=== PATIENT | female | born 1985 | race Caucasian/White ===

== ENCOUNTER 2024-09-15 21:50 | Observation (INO) | payer OTHER, SELFPAY ==
[2024-09-15 18:14] VITALS: BP 193/121
[2024-09-15 18:28] VITALS: BMI 43.9
[2024-09-15 18:31] VITALS: BP 156/95
[2024-09-15 18:34] LABS: % Basophils 0.9 % (0-2); % Eosinophils 1.1 % (0-6); % Immature Granulocytes 0.4 % (0-0.5); % Lymphocytes 30.6 % (20.5-51.1); % Monocytes 6.5 % (1.7-9.3); % Neutrophils 60.5 % (42.2-75.2); Absolute Basophils 0.1 10^3/uL (0-0.2); Absolute Eosinophils 0.1 10^3/uL (0-0.7); Absolute Immature Granulocytes 0.1 10^3/uL (0-0.05); Absolute Lymphocytes 3.9 10^3/uL (1.2-3.4); Absolute Monocytes 0.8 10^3/uL (0.1-0.6); Absolute Neutrophils 7.8 10^3/uL (1.4-6.5); Hematocrit 43.5 % (37.0-47.0); Hemoglobin 14.6 g/dL (12.0-16.0); Mean Corp Hgb Conc. 33.6 g/dL (33.0-37.0); Mean Corpuscular Hgb 27.9 pg (27.0-31.0); Mean Platelet Volume 9.9 fL (7.4-10.4); Nucleated Red Blood Cells % 0 %; Platelet Count 359 10^3/uL (130-400); Red Blood Cell Count 5.24 10^6/uL (4.20-5.40); Red Cell Dist. Width 13.1 % (11.5-14.5); White Blood Cell Count 12.9 10^3/uL (4.8-10.8)
[2024-09-15 18:42] LABS: INR 0.94; PT 12.9 Sec (11.4-14.6)
--- NOTE | 2024-09-15 18:42 | EDRN ---
neurology currently at the pts bedside
--- NOTE | 2024-09-15 18:42 | ED.GENMED ---
History of Present Illness
General
Chief Complaint: Numbness
Source: patient
Exam Limitations: none
Time Seen by Provider: 09/15/24 18:27
Nursing documentation reviewed up to this point in time: agreed with
History of Present Illness
History of Present Illness:
39 yo female presents emergency department due to left facial numbness, left eye blurriness, and difficulty speaking.
If applicable-neuro sx onset
Onset of symptoms known: Yes
Date of onset of symptoms: 09/15/24
Time of onset of symptoms: 12:00
Past History
Past History
ED Past Medical History: NIDDM
ED Past Surgical History: Gynecological (Hysterectomy, D&Cs), Orthopedic (Right knee) and Tonsilectomy (Adenoids)
Social History
Tobacco: Non-smoker
Alcohol: None
Drug: None
Living: with family
Review of Systems
Review of Systems
Allergies reviewed?: Yes
All Other Systems: Not applicable
Constitutional: Reports no symptoms
EENT: Reports no symptoms
Respiratory: Reports no symptoms
Cardiac: Reports no symptoms
ABD/GI: Reports no symptoms
: Reports no symptoms
Musculoskeletal: Reports no symptoms
Skin: Reports no symptoms
Neurological: Reports headache and numbness
Endocrine: Reports no symptoms
Hematologic/Lymphatic: Reports no symptoms
Psychiatric: Reports no symptoms
Phy Exam
Physical Exam
Physical Exam:
Physical Exam
General: no apparent distress, not acutely ill
Neck: supple. no meningeal signs. normal posterior pharynx
Heart: s1/s2 regular rate and rhythm, no murmur. equal radial
pulses.
HEENT: Pupils equal round reactive to light, EOMI
Lungs: no acute respiratory distress. clear bilaterally
Abdomen: normal bowel sounds. not tender. no CVAT
Neuro: alert and oriented. no focal neurological deficits cranial nerves II through XII intact, except mild expressive aphasia
Skin: no rash
Psychiatric: well kept. interactive and cooperative
Extremities: no edema. no calf tenderness. negative homans. good distal pulses
Scores
NIH Stroke Score
Level of Consciousness: 0 - Alert
LOC Questions: 0-Answers both correctly
LOC Commands: 0-Performs both correctly
Best Horizontal Gaze: 0-Normal
Visual Askew: 0=Normal, no visual loss
Facial Palsy: 0=Normal, symmetrical
Motor - Right Arm: 0=No drift 10 seconds
Motor - Left Arm: 0=No drift 10 seconds
Motor - Right Le-No drift 5 seconds
Motor - Left Le-No drift 5 seconds
Limb Ataxia: 0-Absent
Sensation: 0-Normal
Best Language: 1-Mild aphasia
Dysarthria: 0-Normal
Extinction and Inattention: 0-No abnormality
Total Score:: 1
Course
Orders/Labs/Results
Orders:
Orders
09/15/24 18:25
Electrocardiogram (*1) Urgent
Reason for Study: Vertigo / Dizzy
EKG- Treatment ONCE
09/15/24 18:27
C-Reactive Protein Urgent
Comment: ADD ON
Complete Blood Count/With Diff Urgent
Comprehensive Metabolic Panel Urgent
Erythrocyte Sed Rate Urgent
Comment: ADD ON
Magnesium Urgent
PTT Urgent
Prothrombin Time Urgent
TSH Reflex To Free T4 Urgent
Comment: ADD ON
Troponin I Urgent
09/15/24 18:31
CT Head & Neck Angio W/wo IV Urgent
Comment:
Reason For Exam: expressive aphasia, blurry vision
09/15/24 21:27
Admit/Transfer Patient As Directed
Co-Sign Provider:
Level of Care: Observation services
Assign to:: Telemetry
Physician / Group: Curtis
Diagnosis: Left Facial Numbness; Speech Abnormality
Reason for Telemetry: CVA/TIA
Date to Stop Telemetry: 09/18/24
Time to Stop Telemetry: 11:00
PRN Pain Medication Management As Directed
May give lesser potent ordered pain med per pt: Yes
preference::
Protocol:: Medication orders for pain may be administered in a
manner that supports deferring to patient preference
when the pt is:
- Requesting an ordered lesser potent pain medication.
Least to most potent pain medications are defined
as: acetaminophen < NSAID < tramadol < opioids
(morphine, oxycodone, hydromorphone).
- Requesting a lesser dose of the same medication IF
ORDERED.
- Requesting a less intrusive route of administration
if both routes are prescribed by the provider (PO <
IV).
09/15/24 21:29
Code Status As Directed
Resuscitation Status: Full Code
09/15/24 21:31
Add On- LAB Urgent
Tests Added?: magnesium, TSH w/Reflex, ESR, CRP
09/15/24 21:39
Urine Drug Abuse Screen Routine
Date Specimen was Collected: 09/15/24
Time Specimen was Collected: 21:37
09/15/24 23:14
Acetaminophen [Tylenol/Feverall] 650 mg RECTAL Q4HPRN PRN
Acetaminophen [Tylenol] 1,000 mg PO Q6HPRN PRN
Acetaminophen [Tylenol] 650 mg PO Q4HPRN PRN
Aspirin Low Dose EC [Aspir Low (Enteric Coated)] 81 mg PO HS
Lisinopril [Zestril] 2.5 mg PO HS
09/15/24 23:14
Case Management Consult ONCE
Case Management Consult: Discharge Planning
Comment: stroke/tia
DIETARY IP CONSULT Routine
Reason for Consult: stroke/TIA
NEUROLOGY CONSULT Urgent
Consulting Provider: Georgina Dale
Was physician already notified: Yes
Show Dog Trainer Urgent
Activity As Directed
Activity Level: Out of Bed-Early Mobility
NIH Stroke Scale As Directed
Directions: Per protocol
Comment: every shift and with any change in condition or mental status
Neurological Checks As Directed
Frequency: q4h
Additional Instructions:: q4h x 24h upon admission to the floor, then qshift & with any change in condition
and mental status
Obtain Records As Directed
Dates of Information to be Released: January 2024
Type of Information Requested: Entire Record
Obtain Records from: [facility]
Obtain Records As Directed
Dates of Information to be Released: September 2023
Type of Information Requested: Entire Record
Obtain Records from: [place]
Patient Education As Directed
Type: Stroke education packet
Comment: provide to patient and family
Pneumatic Compression Sleeves As Directed
Type: Knee high
Swallow Screening CVA/TIA ONLY As Directed
Comment: NPO until swallowing screening completed
If patient FAILS swallow screening:: NPO, Speech Therapy consult, Aspiration Precautions
If patient PASSES swallow screening, diet:: 2000 cathy/ 17 CHO Diabetic
Vital Signs As Directed
Frequency: Per unit guidelines
Ot Eval And Treat Routine
Pt Eval And Treat Routine
Activity Level: Out of Bed-Early Mobility
Speech Therapy Eval & Treat Routine
DX Deep Vein Thrombosis Video Routine
09/16/24 05:34
Cardiovascular Evaluation IN AM
09/16/24 08:00
Acetazolamide [Diamox] 500 mg PO BID
Atorvastatin [Lipitor] 10 mg PO DAILY
09/18/24 11:00
DC Protocol for Telemetry ONCE
Abnormal Lab Results
09/15/24
18:27
WBC 12.9 H 10^3/uL
(4.8-10.8)
Abs Immat Gran (auto) 0.1 H 10^3/uL
(0-0.05)
Absolute Neuts (auto) 7.8 H 10^3/uL
(1.4-6.5)
Absolute Lymphs (auto) 3.9 H 10^3/uL
(1.2-3.4)
Absolute Monos (auto) 0.8 H 10^3/uL
(0.1-0.6)
Calcium 10.4 H mg/dl
(8.4-10.2)
Total Protein 8.5 H g/dl
(6.3-8.2)
Albumin 5.2 H g/dl
(3.5-5.0)
09/15/24 18:27
09/15/24 18:27
Vital Signs
Initial and Last Documented VS:
Initial Vital Signs
Temp Pulse Resp BP Pulse Ox
98.0 F 89 18 193/121 100
09/15/24 18:14 09/15/24 18:14 09/15/24 18:14 09/15/24 18:14 09/15/24 18:14
Last Documented Vital Signs
Temp Pulse Resp BP Pulse Ox
98.1 F 75 16 107/67 96
09/16/24 07:20 09/16/24 07:20 09/16/24 07:20 09/16/24 07:20 09/16/24 07:20
MDM/Problems Addressed
Differential Diagnosis Includes:
CVA, intracranial hemorrhage
MDM/Problems Addressed:
39-year-old female with expressive aphasia, bilateral numbness. Concern for possible CVA. CTA pending. Patient not in window for TNK.
Chronic conditions affecting care: Neurological disorder (cva/tia)
*Radiology
Radiology exam reviewed: radiology read reviewed (cta head and neck nad)
*Pulse Oximetry
Patient hypoxic: no
*EKG
Interpreted by ED Provider?: Yes
EKG Intrepretation Date: 09/15/24
EKG Intrepretation Time: 19:15
Interpretation: normal
Comparison EKG: no comparison EKG present
Heart Rate: 86
Rate: normal
Rhythm: sinus
[place]: normal axis
Interval: normal interval
QRS Pattern: normal QRS
Ischemia: no ischemia
*Transplant Surgeon Interpretation
Rate: normal
Interpretation: normal
Heart Rate: 84
Rhythm: sinus
*Critical Care Note
Total Time (30-74mins, 75-104mins- exclusive of procedures): Not Applicable
Data Reviewed
Further Testing Considered But Not Given:
TNK not indicated
Patient Management
Social determinants of health affecting care: Living situation and Strong social support
Discussion with other providers: Hospitalist and Service Technician Copier (Neurology, Dr. Dale)
Escalation/DeEscalation of care consider admission/obs:
admit indicated
ED Attending Note
-
Portions of this chart may have been created with voice recognition software.� Occasional wrong word or��sound alike� substitutions may have occurred due to the inherent limitations of voice recognition software.
Discharge Plan
Departure
Patient Disposition: Admit
Date of Disposition: 09/15/24
Time of Disposition: 20:19
Admit to: Telemetry
Presentation/result/management discussed w/ accepting MD/DO: Hospitalist
Patient with high blood pressure during this ER visit?: Yes
Condition: Good
Discharge Problem:
Transient ischemic attack (TIA)
Interventions
Interventions:
*Risk Screen - Suicide Last Done: 09/15/24 18:14
*General Assessment Last Done: 09/15/24 18:14
*Neglect/Abuse Screening Last Done: 09/15/24 18:31
*ED- Fall Risk Assessment Last Done: 09/15/24 18:31
*ED COVID-19 Vaccine History Last Done: 09/15/24 18:31
ED- Neurological Assessment Last Done: 09/15/24 18:31
[2024-09-15 18:43] LABS: APTT 28.1 Sec (23.4-35.0)
[2024-09-15 18:49] LABS: ALT (SGPT) 23 U/L (0-35); AST (SGOT) 26 U/L (14-36); Albumin 5.2 g/dl (3.5-5.0); Alkaline Phosphatase 66 U/L (38-126); Blood Urea Nitrogen 11 mg/dl (7-17); Calcium 10.4 mg/dl (8.4-10.2); Carbon Dioxide 27 mmol/L (22-30); Chloride 101 mmol/L (98-107); Estimated Creatinine Clearance 109 ml/min; Glucose 92 mg/dl (70-99); Magnesium 1.9 mg/dl (1.6-2.3); Potassium 4.1 mmol/L (3.5-5.1); Sodium 139 mmol/L (135-145); Total Bilirubin 0.6 mg/dl (0.2-1.3); Total Protein 8.5 g/dl (6.3-8.2); eGFR > 60.00
[2024-09-15 18:59] LABS: Troponin I < 0.012 ng/ml
[2024-09-15 19:00] VITALS: BP 138/90
--- NOTE | 2024-09-15 20:51 | CON.NEURO ---
Consultation
Order
Date of Consultation: 09/15/24
Requesting Provider: Lokesh Valverde DO
Reason for Consult: stroke
Neurology Consultation Note.
HPI: This is a 39-year-old woman the patient presents Right-handed 09/15/2024 with with left-sided facial numbness, headache, and visual disturbances. According to the patient she was driving when she developed an acute numbness numbness started
around 5:15 PM, affecting the entire left side of her face, extending across her forehead and down into her left neck neck. She reports a stabbing pain in the left temporal area that started around 6 PM that has been intermittent. Ms. Gutierrez(aka
Ruddy)also complains of blurry vision in her left eye, which began while she was driving. She initially thought it was an issue with her contact lens but the blurriness persisted after switching to glasses.
The patient has been experiencing expressive language difficulties since approximately 12 PM, mixing up the first letters of words. She notes that this symptom is not new and has occurred in the past in association with her idiopathic intracranial
hypertension. The patient reports that during episodes, her left pupil sometimes 'fails to dilate'.
Of note, the patient has a history of cerebral venous sinus thrombosis diagnosed in August of the previous year, for which she was initially treated with heparin and is currently on aspirin. She denies experiencing migraines but reports occasional
tinnitus, more pronounced in the right ear, and episodes of vertigo. There is a history of questionable nasal CSF leak
ER VS: 193/121, 89, afebrile
EKG:NSR, QTc Int : 414 ms
PDMP:Pregabalin 100 Mg 20 capsules filled in on 06/28/2024, Oxycodone Hcl (Ir) 5 Mg 7 tabs filled in on 06/25/2024
Labs: WBCs�12.9, normal sodium, creatinine, calcium�10.4, protein�5.2
CT head wo contrast-no acute abnormalities, occlusion, aneurysm or dissection
PMH: IIH, DLP, DM, history of cerebral venous thrombosis, BMI 43.9, STEVEN(intolerant to CPAP)
PSH: MORENA(05/2024), multiple D&Cs for miscarriages, right knee arthroscopy
SH: Works at [employer]; going through divorce, nonsmoker; no history of excessive alcohol use
FH: Not contributory
All:PNC
ROS: Constitutional: Negative. Negative for chills, fever and unexpected weight change.
HENT: Negative for ear pain, hearing loss, tinnitus and trouble swallowing.
Eyes: Negative. Negative for photophobia, pain and visual disturbance.
Respiratory: Negative for cough, choking and shortness of breath.
Cardiovascular: Negative for chest pain, palpitations and leg swelling.
Gastrointestinal: Negative for abdominal pain and vomiting.
Endocrine: Negative. Negative for cold intolerance.
Genitourinary: Negative for dysuria, flank pain and urgency.
Musculoskeletal: Negative for back pain, gait problem, neck pain and neck stiffness.
Skin: Negative for rash.
Allergic/Immunologic: Negative. Negative for immunocompromised state.
Neurological: Negative for dizziness, tremors, seizures, speech difficulty, numbness and headaches.
Psychiatric/Behavioral: Negative for behavioral problems, confusion and hallucinations.
General: Well developed. In no acute distress.
Cardio: Regular rate and rhythm without murmur. Extremities are without cyanosis or edema.
Neuro:
Mental Status: Alert, oriented to person, place, and date. Normal attention and recall. Good fund of knowledge. Follows complex requests across the midline. Comprehension, naming, and repetition intact. Immediate and delayed recall 3/3.
Cranial Nerves: Pupils are equally round and reactive to light. EOMs full. Visual buchanan full to confrontation. No ptosis. No nystagmus. V1-V3 intact to light touch and pinprick bilaterally, symmetric. Face symmetric. Normal hearing AU. The
palate elevated well. SCMs and traps 5/5. Tongue midline. No dysarthria.
Motor: Normal bulk and tone. No pronator or arm drift. Strength 5/5 throughout. No clonus.
Reflexes: 2+ throughout the upper extremities and knees. 2/2 in AJs. Plantar responses flexor bilaterally.
Sensory: Normal pinprick, vibration and JPS.
Coordination: No dysmetria or tremor.
Gait: deferred
Assessment and Plan:
I. Hypertensive emergency
II. IIA
III. History of cerebral sinus thrombosis
-Continue Telemetry monitoring
-Aspiration precautions
-Cautious lowering of BP by approximately 15 % during the first 24 hours is SBP >220 mmHg or diastolic blood pressure >120 mmHg
-Brain MRI without marichuy
-Continue ASA 81 mg QD
-Continue Diamox 500 mg twice daily
-Please check TFTs, magnesium, urine tox, ESR, CRP
-PT.
-Please obtain medical records from [facility]
-DVT prophylaxis.
I personally reviewed all radiology and labs along with past medical records pertinent to current medical problems. Total time spent in patient care is 60 minutes.
Thank you for allowing us to participate in the care of this patient. We will continue to follow. Please do not hesitate to contact us with any questions or concerns.
Subjective/Objective
Subjective Data
Date of Service: September 15, 2024
Objective Data
Vital Signs
Temp Pulse Resp BP Pulse Ox
36.6 C 85 18 156/95 98
09/15/24 19:12 09/15/24 18:31 09/15/24 18:31 09/15/24 18:31 09/15/24 18:31
Lab Results
09/15/24 18:27
09/15/24 18:27
PT 12.9 Sec (11.4-14.6) 09/15/24 18:27
INR 0.94 09/15/24 18:27
APTT 28.1 Sec (23.4-35.0) 09/15/24 18:27
Sodium 139 mmol/L (135-145) 09/15/24 18:27
Potassium 4.1 mmol/L (3.5-5.1) 09/15/24 18:27
BUN 11 mg/dl (7-17) 09/15/24 18:27
Glucose 92 mg/dl (70-99) 09/15/24 18:27
Calcium 10.4 mg/dl (8.4-10.2) H 09/15/24 18:
Patient Allergies
latex [Latex] Allergy (Verified 09/15/24 18:16)
Hives
peanut Allergy (Verified 09/15/24 18:16)
Unknown
Penicillins Allergy (Verified 09/15/24 18:16)
Hives
Medications
-
Home Medications
�Medication �Instructions �Recorded
acetaminophen 500 mg tablet 1,000 mg PO Q6HPRN PRN mild pain 09/15/24
(Tylenol Extra Strength)
acetazolamide 250 mg tablet 500 mg PO BID 09/15/24
aspirin 81 mg tablet,delayed 81 mg PO HS 09/15/24
release
atorvastatin 10 mg tablet 10 mg PO DAILY 09/15/24
lisinopril 2.5 mg tablet 2.5 mg PO HS 09/15/24
tirzepatide 7.5 mg/0.5 mL 7.5 mg SC WE 09/15/24
subcutaneous pen injector
(Wanungregorioro)
Vital Signs and Labs
-
Vital Signs and Labs:
Vital Signs
Temp Pulse Resp BP Pulse Ox
36.6 C 85 18 156/95 98
09/15/24 19:12 09/15/24 18:31 09/15/24 18:31 09/15/24 18:31 09/15/24 18:31
Lab Results
09/15/24 18:27
09/15/24 18:27
PT 12.9 Sec (11.4-14.6) 09/15/24 18:
INR 0.94 09/15/24 18:
APTT 28.1 Sec (23.4-35.0) 09/15/24 18:
Sodium 139 mmol/L (135-145) 09/15/24 18:
Potassium 4.1 mmol/L (3.5-5.1) 09/15/24 18:
BUN 11 mg/dl (7-17) 09/15/24 18:
Glucose 92 mg/dl (70-99) 09/15/24 18:
Calcium 10.4 mg/dl (8.4-10.2) H 09/15/24 18:
Home Medications
-
Home Medications
acetaminophen 500 mg tablet (Tylenol Extra Strength) 1,000 mg PO Q6HPRN PRN mild pain 09/15/24
acetazolamide 250 mg tablet 500 mg PO BID 09/15/24
aspirin 81 mg tablet,delayed release 81 mg PO HS 09/15/24
atorvastatin 10 mg tablet 10 mg PO DAILY 09/15/24
lisinopril 2.5 mg tablet 2.5 mg PO HS 09/15/24
tirzepatide 7.5 mg/0.5 mL subcutaneous pen injector (Mounjaro) 7.5 mg SC WE 09/15/24
[2024-09-15 21:00] VITALS: BP 139/104
--- NOTE | 2024-09-15 21:22 | HPS.HSE ---
Addendum entered and electronically signed by Yoshi Acevedo DO 09/15/24 22:28:
Patient seen and examined independently. Agree with findings and plan as set forth by Magalis Alba PA-C.
Patient is a 39y F with PMH significant for prior cavernous sinus thrombosis, IIH and DM-II who presents to ED complaining of speech difficulty, blurry vision and L facial numbness. Patient has had similar episodes in the past. She reports
difficulty with speech throughout the day today. She was stumbling on her words and 'switching letters' - Bs for Vs, etc - during work. After work she noted blurry vision in the L eye in particular. She removed her contacts and changed to glasses
but the vision change persisted. Patient then developed numbness and tingling across the forehead and into the L face and neck.
Ass:
Speech Abnormality, Blurry Vision, Facial Numbness
Idiopathic Intracranial Hypertension
DM-II
h/o Cavernous Sinus Thrombosis
Plan:
Observe overnight for further evaluation and treatment.
Initial markedly elevated BP significantly improved without intervention.
Continue usual home meds including ASA, lisinopril and Diamox.
Appreciate Neurology evaluation.
MRI in AM.
? Atypical migraine, etc given recurrent episodes.
Original Note:
Family Physician
-
Family Physician: Princess Brandt
Chief Complaint
-
Neurologic Symptoms
History of Present Illness
Patient is a 39 y/o female past medical history of cerebral venous sinus thrombosis, idiopathetic intracranial hypertension, diabetes mellitus and hyperlipidemia who presents with multiple neurologic symptoms. Patient report some difficulty with
her speech starting this afternoon. While driving home around 4PM she started to develop blurry vision with left facial numbness. She notes her speech seems thick, but she is no longer mixing up words.
Medical History
Past Medical History
Past Medical History: Reports Other
Additional Past Medical History:
Cerebral Venous Sinus Thrombosis
Idiopathetic Intracranial Hypertension
Diabetes Mellitus, Type II
Hyperlipidemia
Past Surgical History: Reports Other
Additional Past Surgical History:
Hysterectomy
Right Knee Surgery
T&A
Social History
Tobacco: Non-smoker
Alcohol: Other (Reports very rare alcohol)
Family History
Family History: Not pertinent
Allergies / Home Medications
Allergies reflects when Allergies were last updated in [employer].
Home Medications with original date entered in [employer]
Allergy/Medication List:
Allergies
Allergy/AdvReac Type Severity Reaction Status Date / Time
latex [Latex] Allergy Hives Verified 09/15/24 18:16
peanut Allergy Unknown Verified 09/15/24 18:16
Penicillins Allergy Hives Verified 09/15/24 18:16
Home Medications
acetaminophen 500 mg tablet (Tylenol Extra Strength) 1,000 mg PO Q6HPRN PRN mild pain 09/15/24
acetazolamide 250 mg tablet 500 mg PO BID 09/15/24
aspirin 81 mg tablet,delayed release 81 mg PO HS 09/15/24
atorvastatin 10 mg tablet 10 mg PO DAILY 09/15/24
lisinopril 2.5 mg tablet 2.5 mg PO HS 09/15/24
tirzepatide 7.5 mg/0.5 mL subcutaneous pen injector (Mounjaro) 7.5 mg SC WE 09/15/24
Review of Systems
-
A 12 point ROS was completed and negative except as noted: Yes
Constitutional: Denies Fever
Respiratory: Denies Cough or Trouble Breathing
Cardiac: Denies Chest Pain or Palpitations
Abdomen/GI: Denies Abdominal Pain, Nausea or Vomiting
Neurological: Reports See HPI
Physical Exam
Vital Signs
Vital Signs
Temp Pulse Resp BP Pulse Ox
97.9 F 85 18 156/95 98
09/15/24 19:12 09/15/24 18:31 09/15/24 18:31 09/15/24 18:31 09/15/24 18:31
Physical Exam
General: Comfortable and Conversant
HEENT: Anicteric and Moist mucous membranes
Respiratory: Clear and Non Labored Respirations
Cardiac: S1/S2 and Regular Rhythm
GI: Soft and Non Tender
Rectal: Deferred by Provider
Musculoskeletal: No Clubbing, No Cyanosis and No Edema
Skin: Warm and Dry
Neuro: Awake, Alert, Oriented and Other (Noted sensory changes left face; Slight tongue deviation to the right)
Psych: Calm
Laboratory Results
-
09/15/24 18:
09/15/24 18:
Laboratory Results
PT 12.9 Sec (11.4-14.6) 09/15/24 18:
INR 0.94 09/15/24 18:
APTT 28.1 Sec (23.4-35.0) 09/15/24 18:
Total Bilirubin 0.6 mg/dl (0.2-1.3) 09/15/24 18:
AST 26 U/L (14-36) 09/15/24 18:
ALT 23 U/L (0-35) 09/15/24 18:
Alkaline Phosphatase 66 U/L (38-126) 09/15/24 18:
Troponin I < 0.012 ng/ml 09/15/24 18:
Data Reviewed
-
Lab Data: Labs Reviewed by me
Old Records: Requested
Impression/Plan
-
Speech Abnormality / Left Facial Numbness
-Appreciate Neurology consult
-Continue aspirin
-Check Brain MRI
-Monitor Neurocheck
Hx Cerebral Venous Sinus Thrombosis
-Continue aspirin
-Attempt to obtain records from [facility]
Idiopathetic Intracranial Hypertension
-Continue Diamox
Diabetes Mellitus, Type II
-Check HgbA1c
-Patient maintained on Mounjaro as outpatient
-Patient report lisinopril is for kidney protection with diabetes, not hypertension - Continue lisinopril
Hyperlipidemia
-Continue atorvastatin
DVT proph: SCDs
Code Status: Full Code
[2024-09-15 21:52] LABS: Erythrocyte Sed Rate 3 mm/hour (0-20)
[2024-09-15 22:05] LABS: Amphetamines Negative (Negative); Barbiturates Negative (Negative); Benzodiazepines Negative (Negative); Buprenorphine Negative (Negative); Cocaine Negative (Negative); Marijuana Negative (Negative); Methadone Negative (Negative); Methamphetamines Negative (Negative); Opiates Negative (Negative); Phencyclidine Negative (Negative); Tricyclic Antidepressants Negative (Negative)
[2024-09-15 22:56] LABS: C-Reactive Protein < 5.00 mg/L (0.0-10.00)
[2024-09-15 23:26] LABS: TSH Reflex To Free T4 1.59 uIU/ml (0.47-4.68)
[2024-09-16] VITALS (12 sets, daily range): BP systolic 95–128; BP diastolic 54–90; PULSE 76–93; O2SAT 99–100
[2024-09-16 00:02] LABS: Glucose - Point of Care 84 mg/dl (70-99)
[2024-09-16] MEDS: ZESTRIL 2.5 MG PO (00:02)
[2024-09-16] MEDS: ASPIR LOW (ENTERIC COATED) 81 MG PO (00:03)
[2024-09-16 06:14] LABS: Hematocrit 36.3 % (37.0-47.0); Hemoglobin 12.5 g/dL (12.0-16.0); Mean Corp Hgb Conc. 34.4 g/dL (33.0-37.0); Mean Corpuscular Hgb 28.7 pg (27.0-31.0); Mean Corpuscular Volume 83.3 fL (81.0-99.0); Mean Platelet Volume 10.1 fL (7.4-10.4); Platelet Count 278 10^3/uL (130-400); Red Blood Cell Count 4.36 10^6/uL (4.20-5.40); Red Cell Dist. Width 13.1 % (11.5-14.5); White Blood Cell Count 10.1 10^3/uL (4.8-10.8)
[2024-09-16 06:16] LABS: Albumin 3.8 g/dl (3.5-5.0); Blood Urea Nitrogen 8 mg/dl (7-17); Calcium 8.5 mg/dl (8.4-10.2); Carbon Dioxide 21 mmol/L (22-30); Chloride 112 mmol/L (98-107); Estimated Creatinine Clearance 124 ml/min; Glucose 79 mg/dl (70-99); HDL Cholesterol 46 mg/dl; LDL Cholesterol, Calculated 91 mg/dl; Potassium 3.6 mmol/L (3.5-5.1); Sodium 140 mmol/L (135-145); Total Cholesterol 159 mg/dl (50-199); Triglyceride 110 mg/dl (10-149); Very Low Density Lipoprotein 22 mg/dl (0-30); eGFR > 60.00
[2024-09-16 07:37] LABS: Glucose - Point of Care 81 mg/dl (70-99)
--- NOTE | 2024-09-16 08:45 | PTOTSP ---
Speech Language Pathology
Pt seen for cognitive-linguistic tx. No dysarthria noted. Evaluated via the Michael Cognitive Assessment (MOCA), version 7.2. Pt with an overall score of 26/30 where normal range is 26-30. Although pt scored WNL on testing, pt is currently
below baseline for age. Pt reported approximately 1 year history of difficulty with memory and attention, feeling like she has 'ADHD.' Pt participated in outpatient cognitive tx with PACKAGE DELIVERY DRIVER through [facility], but this was brief given high copay and
inability to afford. Provided information on DH outpatient as needed, as pt now has different insurance.
Pt also seen for clinical bedside swallow evaluation. P.O. trials of puree, regular solids, and thin liquids provided. Adequate mastication, bolus formation, and A-P transit noted with no oral residue. No overt signs of aspiration. Although no
issues noted during evaluation, pt reported intermittent 'choking' on solids, such as salads and ham steak for the last year.
Recommend:
(1) Regular solids/thin liquids
(2) VSE to rule out pharyngeal dysphagia
(3) General aspiration precautions
(4) Meds as tolerated
(5) PACKAGE DELIVERY DRIVER to continue to follow. Consider OP PACKAGE DELIVERY DRIVER tx (provided information) to address cognitive-linguistic deficits, which pt has been noting for the last year
--- NOTE | 2024-09-16 09:23 | W.PN.HOSP.TC ---
Today's Communication/Plan
-
dc to home after VSE
Assessment / Plan
Assessment / Plan
Assessment:
Speech Abnormality/Left Facial Numbness
- MRI negative, CTA negative
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
- Appreciate Neurology evaluations
- continue ASA; no other med changes
- OP Neuro f/u
Dysphagia reported
- VSE today
Hx Cerebral Venous Sinus Thrombosis
- continue aspirin
Idiopathetic Intracranial Hypertension
- continue Diamox
Diabetes Mellitus, Type II
- Patient maintained on Mounjaro as outpatient
- Patient report lisinopril is for kidney protection with diabetes, not hypertension - Continue lisinopril
Hyperlipidemia
- continue atorvastatin
DVT ppx: SCDs
Code Status: Full Code
More than 30 minutes spent in discharge including
Final examination of the patient
Summarizing hospital stay
Instructions for continuing care to all relevant caregivers
Preparation of discharge records, prescriptions, and referral forms
Total time spent (in minutes): 41
Anticipated Discharge: Today
Subjective/Interval History
-
Date of Service: September 16, 2024
vision changes improved
facial numbness improving
mentions choking on salads intermittently - VSE planned today
Objective Data
-
Labs:
Laboratory Results
09/16/24
05:34
WBC 10.1
Hgb 12.5
Hct 36.3 L
Plt Count 278 D
Sodium 140
Potassium 3.6
Chloride 112 H
Carbon Dioxide 21 L
BUN 8
Creatinine 0.7
Glucose 79
Calcium 8.5 D
Vital Signs:
Vital Signs
Temp Pulse Resp BP Pulse Ox
98.1 F 75 16 107/67 96
09/16/24 07:20 09/16/24 07:20 09/16/24 07:20 09/16/24 07:20 09/16/24 07:20
Physical Exam
-
General: No Apparent Distress
HEENT: Normocephalic and Atraumatic
Respiratory: Negative Wheezes
Cardiac: Regular Rhythm and S1/S2
GI: Soft and Nontender
Musculoskeletal: No Edema
Neuro: AO x 3
Hematologic / Lymphatic: No Lymphadenopathy
Psych: Calm
Data Reviewed
-
Total Time Spent with Patient (in minutes): 42
Labs: Labs Reviewed by me
--- NOTE | 2024-09-16 09:28 | W.DS.TRANS ---
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
-
Discharge Instructions:
Instructions:
Stand-Alone Forms:
Changes to Home Medications: No
Discharge Medications:
DC Medications w/original date entered in [employer]
acetaminophen 500 mg tablet (Tylenol Extra Strength) 1,000 mg PO Q6HPRN PRN mild pain 09/15/24
acetazolamide 250 mg tablet 500 mg PO BID 09/15/24
aspirin 81 mg tablet,delayed release 81 mg PO HS 09/15/24
atorvastatin 10 mg tablet 10 mg PO DAILY 09/15/24
lisinopril 2.5 mg tablet 2.5 mg PO HS 09/15/24
tirzepatide 7.5 mg/0.5 mL subcutaneous pen injector (Mounjaro) 7.5 mg SC WE 09/15/24
Home Medication Changes
Pending Results: No
Total time spent discharging patient (in min): 41
--- NOTE | 2024-09-16 09:47 | CM ---
CM reviewed medical records. Patient is pending additional testing with plans for discharge to home today.
--- NOTE | 2024-09-16 09:49 | W.PN.NEURO.1 ---
Today's Communication / Plan
-
.
Subjective/Objective
Subjective Data
Date of Service: September 16, 2024
Neurology follow-up note
24-hour events, normotensive, afebrile
MAR: Lisinopril 2.5 once, aspirin 81 mg once
Magnesium�1.9, ESR, CRP, TFTs�normal. Urine tox�negative
Ms. Mcginnis continues to have left facial and bifrontal numbness and intermittent mild left frontal 'sharp pains '. No reports of new change in vision, strength or balance.
Brain MRI showed no acute infarcts and a mild mucosal thickening of the bilateral maxillary and ethmoid sinuses. 1.6 cm mucous retention cyst in the left maxillary sinus.
PMH: IIH, DLP, DM, history of cerebral venous thrombosis, BMI 43.9, STEVEN(intolerant to CPAP)
PSH: MORENA(05/2024), multiple D&Cs for miscarriages, right knee arthroscopy
SH: Works at [employer]; going through divorce, nonsmoker; no history of excessive alcohol use
FH: Not contributory
All:PNC
ROS: Constitutional: Negative. Negative for chills, fever and unexpected weight change.
HENT: Negative for ear pain, hearing loss, tinnitus and trouble swallowing.
Eyes: Negative. Negative for photophobia, pain and visual disturbance.
Respiratory: Negative for cough, choking and shortness of breath.
Cardiovascular: Negative for chest pain, palpitations and leg swelling.
Gastrointestinal: Negative for abdominal pain and vomiting.
Endocrine: Negative. Negative for cold intolerance.
Genitourinary: Negative for dysuria, flank pain and urgency.
Musculoskeletal: Negative for back pain, gait problem, neck pain and neck stiffness.
Skin: Negative for rash.
Allergic/Immunologic: Negative. Negative for immunocompromised state.
Neurological: Positive for numbness and intermittent headacheH
Psychiatric/Behavioral: Negative for behavioral problems, confusion and hallucinations.
General: Well developed. In no acute distress.
Cardio: Regular rate and rhythm without murmur. Extremities are without cyanosis or edema.
Neuro:
Mental Status: Alert, oriented to person, place, and date. Normal attention and recall. Good fund of knowledge. Follows complex requests across the midline. Comprehension, naming, and repetition intact. Immediate and delayed recall 3/3.
Cranial Nerves: Pupils are equally round and reactive to light. EOMs full. Visual buchanan full to confrontation. No ptosis. No nystagmus. V1-V3 intact to light touch and pinprick bilaterally, symmetric. Face symmetric. Normal hearing AU. The
palate elevated well. SCMs and traps 5/5. Tongue midline. No dysarthria.
Motor: Normal bulk and tone. No pronator or arm drift. Strength 5/5 throughout. No clonus.
Reflexes: 2+ throughout the upper extremities and knees. 2/2 in AJs. Plantar responses flexor bilaterally.
Sensory: Normal pinprick, vibration and JPS.
Coordination: No dysmetria or tremor.
Gait: deferred
Assessment and Plan:
I. Sensory symptoms. Etiology of migraine versus somatization DO.
II. IIH
III. History of cerebral sinus thrombosis
IV. Para sinus disease.
-Continue ASA 81 mg QD
-Continue Diamox 500 mg twice daily
-Outpatient ENT evaluation
-Outpatient neurology follow-up at [facility] in 1 week
-DVT prophylaxis.
-Please recall neurology service with any questions or concerns
I personally reviewed all radiology and labs along with past medical records pertinent to current medical problems. Total time spent in patient care is 37 minutes.
Thank you for allowing us to participate in the care of this patient.Please do not hesitate to contact us with any questions or concerns.
Objective Data
Vital Signs
Temp Pulse Resp BP Pulse Ox
36.7 C 75 16 107/67 96
09/16/24 07:20 09/16/24 07:20 09/16/24 07:20 09/16/24 07:20 09/16/24 07:20
Lab Results
09/16/24 05:34
09/16/24 05:34
PT 12.9 Sec (11.4-14.6) 09/15/24 18:27
INR 0.94 09/15/24 18:27
APTT 28.1 Sec (23.4-35.0) 09/15/24 18:27
Sodium 140 mmol/L (135-145) 09/16/24 05:34
Potassium 3.6 mmol/L (3.5-5.1) 09/16/24 05:34
BUN 8 mg/dl (7-17) 09/16/24 05:34
Glucose 79 mg/dl (70-99) 09/16/24 05:34
Calcium 8.5 mg/dl (8.4-10.2) D 09/16/24 05:34
LDL Cholesterol, Calc 91 mg/dl 09/16/24 05:34
Ur Buprenorphine Negative (Negative) 09/15/24 21:39
Patient Allergies
latex [Latex] Allergy (Verified 09/15/24 18:16)
Hives
peanut Allergy (Verified 09/15/24 18:16)
Unknown
Penicillins Allergy (Verified 09/15/24 18:16)
Hives
Vital Signs and Labs
-
Vital Signs and Labs:
Vital Signs
Temp Pulse Resp BP Pulse Ox
36.7 C 75 16 107/67 96
09/16/24 07:20 09/16/24 07:20 09/16/24 07:20 09/16/24 07:20 09/16/24 07:20
Lab Results
09/16/24 05:34
09/16/24 05:34
PT 12.9 Sec (11.4-14.6) 09/15/24 18:27
INR 0.94 09/15/24 18:27
APTT 28.1 Sec (23.4-35.0) 09/15/24 18:27
Sodium 140 mmol/L (135-145) 09/16/24 05:34
Potassium 3.6 mmol/L (3.5-5.1) 09/16/24 05:34
BUN 8 mg/dl (7-17) 09/16/24 05:34
Glucose 79 mg/dl (70-99) 09/16/24 05:34
Calcium 8.5 mg/dl (8.4-10.2) D 09/16/24 05:34
LDL Cholesterol, Calc 91 mg/dl 09/16/24 05:34
Ur Buprenorphine Negative (Negative) 09/15/24 21:39
Medications
-
Medications:
Generic Name Dose Route Start Last Admin
Trade Name Freq PRN Reason Stop Dose Admin
Acetaminophen 1,000 mg 09/15/24 23:14
Acetaminophen 500 Mg Tablet PO 10/13/24 23:13
Q6HPRN PRN
mild pain/headache
Acetaminophen 650 mg 09/15/24 23:14
Acetaminophen 650 Mg Rectal Suppository RECTAL 10/13/24 23:13
Q4HPRN PRN
ARVIZU, mild pain, or temp >100.4F
Acetazolamide 500 mg 09/16/24 08:00
Acetazolamide 250 Mg Tablet PO 10/14/24 07:59
BID NIKKI
Aspirin 81 mg 09/15/24 23:14 09/16/24 00:03
Aspirin 81 Mg (Enteric Coated) Tablet PO 10/13/24 23:13 81 mg
HS NIKKI Administration
Atorvastatin Calcium 10 mg 09/16/24 08:00
Atorvastatin (Lipitor) 10 Mg Tablet PO 10/14/24 07:59
DAILY NIKKI
Dextrose 12.5 grams 09/15/24 23:14
Dextrose 50% (0.5 Grams/Ml) 50 Ml Syringe IV 10/13/24 23:13
[id number] PRN
hypoglycemia
Protocol
Glucagon 1 mg 09/15/24 23:14
Glucagon 1 Mg Vial IM 10/13/24 23:13
PRN PRN
hypoglycemia
Protocol
Insulin Aspart 0 units 09/16/24 07:30 09/16/24 08:43
Insulin Aspart Low Resistance 300 Units/3 Ml Pen.Injctr SC 10/14/24 07:29 Not Given
AC NIKKI
Protocol
Lisinopril 2.5 mg 09/15/24 23:14 09/16/24 00:02
Lisinopril 2.5 Mg Tablet PO 10/13/24 23:13 2.5 mg
[facility] Administration
Sodium Chloride 0 flush 09/15/24 23:00
Sodium Chloride 0.9% (Flush) Syringe IV 10/13/24 22:59
PER PROTOCOL NIKKI
Home Medications
-
Home Medications
acetaminophen 500 mg tablet (Tylenol Extra Strength) 1,000 mg PO Q6HPRN PRN mild pain 09/15/24
acetazolamide 250 mg tablet 500 mg PO BID 09/15/24
aspirin 81 mg tablet,delayed release 81 mg PO HS 09/15/24
atorvastatin 10 mg tablet 10 mg PO DAILY 09/15/24
lisinopril 2.5 mg tablet 2.5 mg PO HS 09/15/24
tirzepatide 7.5 mg/0.5 mL subcutaneous pen injector (Mounjaro) 7.5 mg SC WE 09/15/24
[2024-09-16] MEDS: LIPITOR 10 MG PO (10:02)
[2024-09-16] MEDS: DIAMOX 500 MG PO (10:04)
--- NOTE | 2024-09-16 10:05 | PTOTSP ---
Speech Language Pathology
VIDEOFLUOROSCOPIC SWALLOWING EXAMINATION (VSE) completed. Pt presents with oropharyngeal swallow WNL. No penetration/aspiration or any pharyngeal residue noted. No etiology found to explain report of choking on solids at time for last year.
Esophageal sweep showed no residue.
Recommend:
(1) Continue regular solids/thin liquids
(2) General aspiration precautions
(3) Meds as tolerated
(4) Consider OP GI consult if symptoms persist/worsen
(5) PARASITOLOGIST to continue to follow for cognitive-linguistic tx. Further dysphagia tx not indicated.
[2024-09-16 10:25] LABS: Glycohemoglobin (HgbA1c) 5.6 % (4.0-5.6)
--- NOTE | 2024-09-16 10:52 | W.DS.TRANS ---
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
-
Discharge Instructions:
Discharge Diagnosis/Procedures acephalic migraine with aura
Diet Regular
Activity As tolerated
Instructions:
Stand-Alone Forms:
Changes to Home Medications: No
Discharge Medications:
DC Medications w/original date entered in [employer]
acetaminophen 500 mg tablet (Tylenol Extra Strength) 1,000 mg PO Q6HPRN PRN mild pain 09/15/24
acetazolamide 250 mg tablet 500 mg PO BID Kidney Disease 09/15/24
aspirin 81 mg tablet,delayed release 81 mg PO HS Blood Clot Prevention/Tx 09/15/24
atorvastatin 10 mg tablet 10 mg PO DAILY High Cholesterol 09/15/24
lisinopril 2.5 mg tablet 2.5 mg PO HS Blood Pressure 09/15/24
tirzepatide 7.5 mg/0.5 mL subcutaneous pen injector (Mounjaro) 7.5 mg SC WE endocrine condition 09/15/24
Home Medication Changes
Pending Results: No
Total time spent discharging patient (in min): 41
== END 2024-09-16 11:06 | disposition home or self-care (01) ==
LOC: ED 21:50
PROVIDERS: Physician Assistant Medical; ADMITTING PHYSICIAN Hospitalist; ATTENDING PHYSICIAN Internal Medicine; CONSULT PHYSICIAN Psychiatry & Neurology Neurology; EMERGENCY PHYSICIAN Emergency Medicine; FAMILY PHYSICIAN Family Medicine
DX: G43.109 Migraine with aura, not intractable, without status migrainosus (principal); R20.0 Anesthesia of skin; H53.8 Other visual disturbances; E11.9 Type 2 diabetes mellitus without complications; R47.01 Aphasia; G93.2 Benign intracranial hypertension; H93.11 Tinnitus, right ear; E78.5 Hyperlipidemia, unspecified; R13.10 Dysphagia, unspecified; R94.31 Abnormal electrocardiogram [ECG] [EKG]; J34.1 Cyst and mucocele of nose and nasal sinus; G47.33 Obstructive sleep apnea (adult) (pediatric); I16.1 Hypertensive emergency; R09.89 Other specified symptoms and signs involving the circulatory and respiratory systems; Z79.899 Other long term (current) drug therapy; Z79.82 Long term (current) use of aspirin; Z88.0 Allergy status to penicillin; Z91.040 Latex allergy status; Z91.010 Allergy to peanuts; Z90.710 Acquired absence of both cervix and uterus; Z79.85 Long-term (current) use of injectable non-insulin antidiabetic drugs; Z63.5 Disruption of family by separation and divorce; Z86.718 Personal history of other venous thrombosis and embolism
CPT/HCPCS: 70496; 70498; 70551; 74230; 80048; 80053; 80061; 80306; 82040; 82962; 83036; 83735; 84443; 84484; 85025; 85027; 85610; 85652; 85730; 86140; 92523; 92610; 92611; 93005; 97162; Q9967